=== PATIENT | female | born 1945 | race Caucasian/White ===

== ENCOUNTER 2023-05-27 07:57 | Outpatient (CLI) | payer MEDICARE, SELFPAY ==
--- NOTE | ~2023-05-27 | XR_ITS ---
EXAMINATION: XR barium swallow DATE: 05/27/2023 09:42 INDICATION: Dysphagia TECHNIQUE: The patient drank thick barium, gas-producing crystals, and thin barium. Fluoroscopic spot radiographs of the hypopharynx and esophagus were obtained. Fluoroscopy exposure time was 2.1 minut es. A total of 1736 images were recorded. Total DAP was 9.505 mGycm^2 COMPARISON: None. FINDINGS: Mild asymmetry to the pharynx with couple of appearing intraluminal projections along the r ight lateral wall of the piriform sinus. There also appear to be abnormal filling defects at the vall ecula on the lateral projection. There is a a stricture beginning 10 cm above level of the thoracic h iatus extending to approximately 7.5 cm proximal to the hiatus with maximal narrowing to an intralumi nal diameter of 5 mm. On the BROWN projection the segment of narrowing appears asymmetric with relative ly smooth mucosal contour on the left anterior wall and with a more irregular undulating contour to t he right posterior wall. There is a small avulsion diverticulum along the right posterior wall at the caudal margin of stricture. There is a small sliding-type hiatal hernia with Schatzki's ring at the gastroesophageal junction located approximately 3 cm above level of diaphragm. This does not result i n a significant stricture at the residual lumen dilating to 2.2 cm. Dysmotility in the caudal half of the esophagus at level of the stricture where there is weakening of the primary peristaltic wave, br eakup of the contrast bolus and occasional tertiary contractions. There was no gastroesophageal reflu x with provocative maneuvers. IMPRESSION: 1. 2.5 cm stricture located 10 cm above level of the diaphragm with asymmetric irregular contour to t he esophageal wall which is of indeterminate etiology. The irregular and asymmetric mucosal contour a long the right posterior wall could be due to scarring related to reported prior esophageal dilation although differential includes malignancy. 2. Asymmetry to the piriform sinus with nodular contour to the right lateral wall with additional abn ormal filling defects at the vallecula. Recommend laryngoscopy for further evaluation. 3. Small sliding-type hiatal hernia with partial Schatzki's ring at the gastroesophageal junction loc ated 3 cm above the diaphragm and which is without significant stenosis with lumen diameter to up to 2.2 cm. 4. Small pulsion diverticulum along the inferior margin of the 2.5 cm stricture. Reviewed, dictated and finalized at location A. HOLOGY CLINICIAN IMPRESSION: 1. 2.5 cm stricture located 10 cm above level of the diaphragm with asymmetric irregular contour to the esophageal wall which is of indeterminate etiology. Th e irregular and asymmetric mucosal contour along the right posterior wall could be due to scarring related to reported prior esophageal dilation although diff erential includes malignancy. 2. Asymmetry to the piriform sinus with nodular contour to the right lateral wa ll with additional abnormal filling defects at the vallecula. Recommend laryngo scopy for further evaluation. 3. Small sliding-type hiatal hernia with partial Schatzki's ring at the gastroe sophageal junction located 3 cm above the diaphragm and which is without signif icant stenosis with lumen diameter to up to 2.2 cm. 4. Small pulsion diverticulum along the inferior margin of the 2.5 cm stricture .
== END 2023-05-27 07:58 | disposition home or self-care (01) ==
PROVIDERS: PCP Family Medicine; Visit Provider Internal Medicine Gastroenterology
DX: K22.2 Esophageal obstruction (principal); K44.9 Diaphragmatic hernia without obstruction or gangrene; K22.5 Diverticulum of esophagus, acquired
CPT/HCPCS: 74220

== ENCOUNTER 2023-07-08 01:39 | Day surgery (SDC) | payer MEDICARE, SELFPAY ==
[2023-06-24 14:58] VITALS: BMI 27.4
--- NOTE | 2023-06-24 15:56 | PC.NURSE ---
Spoke with _PATIENT____ regarding medication _ELIQUIS____. Pt. verbalizes understanding that the last dose of _ELIQUIS___ is to be taken on ____07/05/2023____ and the Endoscopist will instruct them when to restart after the procedure.
--- NOTE | 2023-07-04 09:52 | SUR.PREOP ---
Patient called regarding upcoming procedure. Reviewed preop instructions, appointment times, and procedure prep.
--- NOTE | 2023-07-07 15:23 | PM.HPGS ---
History of Present Illness History of Present Illness Consent: Risks, benefits, and alternatives have been discussed and questions answered. Patient agrees to proceed with procedure. Chief complaint: Dysphagia unspecified, hx colon polyps Narrative: Tori Cowan is a 77 year old female who?has had difficulty swallowing for several years.? She recalls having had endoscopy on 3 occasions by about 5 years ago.? This was done 3 times in close proximity because he had to progressively dilate her esophagus.? Only after the last 1 she had slight soreness for few days. Early this year because her symptoms had returned she saw another doctor in [place] He also has perform 3 separate procedures but ever since the very 1st 1 in July she has had constant pain in her lower neck and upper substernal area.? The pain is continuous.? Is not aggravated significantly by swallowing.? The pain is worse at night and at night will radiate down the chest about [address] and is also worse if she turns to the right. She is having difficulty swallowing food.? She feels that it gets stuck at times and in fact a couple of months ago she went to the emergency room because something had been stopped for 4 hours.? She also has a history of colon polyps . Review of Systems Review of Systems: All systems reviewed & are unremarkable except as noted in HPI and below PMFSH Past Medical History Medical History Afib Arthritis Breast mass CVA (cerebral vascular accident) Diabetes History of hypertension Mitral valve prolapse Surgical History Surgical History Aortic valve replaced H/O breast biopsy H/O breast surgery History of partial colectomy Hx of tonsillectomy Family History Family History Mother Alzheimer's disease Diabetes mellitus Carcinoma of colon Hypertension Heart disease Lung cancer Social History Social History Smoking packs per day: 1 Smoking cigarettes per day: 20.0 Years smoked: 25 Smoking pack-years: 25.00 Smoking status: Former smoker Tobacco type: cigarettes Alcohol intake: current Drinks per week: 14 Alcohol use details: VODKA AND ICE Substance use: never Substance use type: does not use Living arrangements: with family Spiritual care concerns: No Meds Home Medications and Allergies Home Medications Medication Instructions Recorded Confirmed Type alprazolam 0.5 mg tablet 0.5 mg PO DAILY PRN Anxiety 04/29/23 07/08/23 History amlodipine 5 mg tablet 5 mg PO DAILY 04/29/23 07/08/23 History apixaban 5 mg tablet 5 mg PO BID 04/29/23 07/08/23 History aspirin 81 mg tablet,delayed 81 mg PO DAILY 04/29/23 07/08/23 History release calcium carbonate 500 mg calcium 500 mg PO DAILY 04/29/23 07/08/23 History (1,250 mg) tablet cyanocobalamin (vitamin B-12) 1,000 mcg PO DAILY 04/29/23 07/08/23 History 1,000 mcg capsule flecainide 100 mg tablet 100 mg PO Q12H 04/29/23 07/08/23 History fluticasone propionate 50 1 spray intranasal DAILY PRN 04/29/23 07/08/23 History mcg/actuation nasal ALLEGIES spray,suspension glipizide 5 mg tablet 5 mg PO BID 04/29/23 07/08/23 History levothyroxine 50 mcg capsule 50 mcg PO DAILY 04/29/23 07/08/23 History losartan 50 mg tablet 50 mg PO BID 04/29/23 07/08/23 History metformin 500 mg tablet 500 mg PO BID 04/29/23 07/08/23 History metoprolol tartrate 100 mg tablet 100 mg PO BID 04/29/23 07/08/23 History omeprazole 20 mg capsule,delayed 20 mg PO BID 04/29/23 07/08/23 History release rosuvastatin 20 mg tablet 20 mg PO DAILY 04/29/23 07/08/23 History Allergies Allergy/AdvReac Type Severity Reaction Status Date / Time cefadroxil Allergy Unknown Hives Verified 07/08/23 09:34 Exam Const: General: alert Orientation/consciousnes
[2023-07-08 09:37] VITALS: BP 149/69; PULSE 68; RESP 16; TEMP 36.1; O2SAT 96
[2023-07-08] MEDS: GENTAMICIN 80MG/SOD CHL 50 ML 80 MG/50 ML BAG 100 MG IVPB (09:53)
[2023-07-08 09:54] LABS: Glucose Point of Care 152 mg/dl (65-105)
[2023-07-08] MEDS: LACTATED RINGERS 1,000 ML 150 ML IV CONT (09:54)
[2023-07-08] MEDS: AMPICILLIN 2 GM/NS 100 ML 2 GM/100 ML BAG IVPB (10:18)
--- NOTE | 2023-07-08 10:18 | WPDANESEPPF ---
Anes - Initial Pre Proc Eval Procedure: Operation Date: 07/08/23 10:30 Proposed Procedures p Esophagogastroduodenoscopy & Colonoscopy - Ari Garcia MD Date/Time: 07/08/23 10:18 Surgeon: Ari Garcia MD Pre Op Diagnosis: Dysphagia unspecified, hx colon polyps Patient Data Age: 77 Gender: F Height: 1.63 m Weight: 71.8 kg Last Vital Signs Temp 97.0 F L 07/08/23 09:37 Pulse 68 07/08/23 09:37 Resp 16 07/08/23 09:37 BP 149/69 H 07/08/23 09:37 Pulse Ox 96 07/08/23 09:37 O2 Del Method Room Air 07/08/23 09:37 Allergies Allergy/AdvReac Type Severity Reaction Status Date / Time cefadroxil Allergy Unknown Hives Verified 07/08/23 09:34 Home Medications Medication Instructions Recorded Confirmed Type alprazolam 0.5 mg tablet 0.5 mg PO DAILY PRN Anxiety 04/29/23 07/08/23 History amlodipine 5 mg tablet 5 mg PO DAILY 04/29/23 07/08/23 History apixaban 5 mg tablet 5 mg PO BID 04/29/23 07/08/23 History aspirin 81 mg tablet,delayed 81 mg PO DAILY 04/29/23 07/08/23 History release calcium carbonate 500 mg calcium 500 mg PO DAILY 04/29/23 07/08/23 History (1,250 mg) tablet cyanocobalamin (vitamin B-12) 1,000 mcg PO DAILY 04/29/23 07/08/23 History 1,000 mcg capsule flecainide 100 mg tablet 100 mg PO Q12H 04/29/23 07/08/23 History fluticasone propionate 50 1 spray intranasal DAILY PRN 04/29/23 07/08/23 History mcg/actuation nasal ALLEGIES spray,suspension glipizide 5 mg tablet 5 mg PO BID 04/29/23 07/08/23 History levothyroxine 50 mcg capsule 50 mcg PO DAILY 04/29/23 07/08/23 History losartan 50 mg tablet 50 mg PO BID 04/29/23 07/08/23 History metformin 500 mg tablet 500 mg PO BID 04/29/23 07/08/23 History metoprolol tartrate 100 mg tablet 100 mg PO BID 04/29/23 07/08/23 History omeprazole 20 mg capsule,delayed 20 mg PO BID 04/29/23 07/08/23 History release rosuvastatin 20 mg tablet 20 mg PO DAILY 04/29/23 07/08/23 History Laboratory Tests 07/08/23 09:52 POC Capillary Glucose 152 H mg/dl (65-105) Patient hx anesthesia problems: none Family hx anesthesia problems: none Results Review: All pre-operative results and documents have been reviewed as part of the pre-operative evaluation. [facility] Past Medical History Medical History Afib Arthritis Breast mass CVA (cerebral vascular accident) Diabetes History of hypertension Mitral valve prolapse Surgical History Surgical History Aortic valve replaced H/O breast biopsy H/O breast surgery History of partial colectomy Hx of tonsillectomy Family History Family History Mother Alzheimer's disease Diabetes mellitus Carcinoma of colon Hypertension Heart disease Lung cancer Social History Social History Smoking packs per day: 1 Smoking cigarettes per day: 20.0 Years smoked: 25 Smoking pack-years: 25.00 Smoking status: Former smoker Tobacco type: cigarettes Alcohol intake: current Drinks per week: 14 Alcohol use details: VODKA AND ICE Substance use: never Substance use type: does not use Living arrangements: with family Spiritual care concerns: No Anes - Eval Final PreProcedure Day of Procedure 07/08/23 10:18 Patient weight: normal Heart: regular rate and rhythm Lungs: clear to auscultation Airway: Mallampati scale class II Neurological: alert and oriented Last oral intake: >/= 8 hours ASA classification: III Emergent: no Anesthetic plan: proceed Anesthesia type and monitoring: general GIVS and standard monitoring Results Review: All pre-operative results and documents have been reviewed as part of the pre-operative evaluation. Informed Consent: The patient's anesthetic plan and its attendant risks and benefits were discussed with the pat
--- NOTE | 2023-07-08 11:01 | SUR.OPER ---
EGD end: 1100 COLONOSCOPY start: 1106
[2023-07-08 11:32] VITALS: BP 118/73; PULSE 73; RESP 18; O2SAT 100
[2023-07-08 11:42] VITALS: BP 140/62; PULSE 82; RESP 24; O2SAT 99
--- NOTE | 2023-07-08 11:46 | SUR.OPER ---
1 descending colon polyp not retrieved Dr. Garcia aware.
[2023-07-08 11:52] VITALS: BP 151/60; PULSE 76; RESP 18; O2SAT 100
== END 2023-07-08 12:11 | disposition home or self-care (01) ==
PROVIDERS: PCP Family Medicine; Visit Provider Internal Medicine Gastroenterology
PROC: 0DJ08ZZ Inspection of Upper Intestinal Tract, Via Natural or Artificial Opening Endoscopic (ICD-10-PCS; CPT 43235; principal; 2023-07-08 10:30)
DX: Z12.11 Encounter for screening for malignant neoplasm of colon (principal); K57.30 Diverticulosis of large intestine without perforation or abscess without bleeding; D12.4 Benign neoplasm of descending colon; D12.2 Benign neoplasm of ascending colon; K64.8 Other hemorrhoids; Z90.49 Acquired absence of other specified parts of digestive tract; Z98.0 Intestinal bypass and anastomosis status; K22.2 Esophageal obstruction; K22.10 Ulcer of esophagus without bleeding; K31.7 Polyp of stomach and duodenum; K21.00 Gastro-esophageal reflux disease with esophagitis, without bleeding; I48.91 Unspecified atrial fibrillation; E11.9 Type 2 diabetes mellitus without complications; I10 Essential (primary) hypertension; I34.1 Nonrheumatic mitral (valve) prolapse; Z86.73 Personal history of transient ischemic attack (TIA), and cerebral infarction without residual deficits; Z87.891 Personal history of nicotine dependence; Z79.01 Long term (current) use of anticoagulants; Z79.82 Long term (current) use of aspirin; Z79.84 Long term (current) use of oral hypoglycemic drugs
CPT/HCPCS: 45385; 43249; 82948; 88305; C1726; J0290; J1580; J2704; J7120

== ENCOUNTER 2023-12-17 01:20 | Day surgery (SDC) | payer MEDICARE, SELFPAY ==
[2023-12-09 10:37] VITALS: BMI 27.2
--- NOTE | 2023-12-09 11:07 | PCDIET ---
Pt interview completed. Clearance and CRMD forms faxed to Dr. Li (eliquis prescriber) and Dr. Heck. Pt concerned about blood sugar dropping before her afternoon appointment. Pt informed she can drink up to 6 oz of clear juice before 0800 on the day of her procedure. She is to call if her blood sugar is low after 0800. Pt aware we will call her again after receiving cardiac clearance to instruct her when to stop taking her Eliquis. Pt stated understanding. Abx ordered for valve replacement. Ampicillin flagged for reaction r/t pt being allergic to cefadroxil. Pt stated she has had no issues taking pcn drugs and per chart was given ampicililn and gentamycin during previous EGD in July 04/2024.
--- NOTE | 2023-12-12 08:18 | SUR.PREOP ---
Spoke with patient regarding medications. Pt. verbalizes understanding that the last dose of Eliquis is to be taken on 12/14/23 and the Endoscopist will instruct them when to restart after the procedure.
--- NOTE | 2023-12-12 09:19 | SUR.PREOP ---
No CRMD form has been received yet for Pt's pacemaker. Fax was resent to Dr. Heck's office. Office was called and informed that new fax was sent over this morning at 0808 for CRMD.
[2023-12-17 09:34] VITALS: BP 162/67; PULSE 72; RESP 18; TEMP 36.3; O2SAT 96
[2023-12-17] MEDS: LACTATED RINGERS 1,000 ML 150 ML IV CONT (09:47)
[2023-12-17] MEDS: GENTAMICIN 80MG/SOD CHL 50 ML 80 MG/50 ML BAG 100 MG IVPB (09:48)
[2023-12-17 09:49] LABS: Glucose Point of Care 170 mg/dl (65-105)
--- NOTE | 2023-12-17 10:09 | WPDANESEPPF ---
Anes - Initial Pre Proc Eval Procedure: Operation Date: 12/17/23 10:00 Proposed Procedures p Esophagogastroduodenoscopy - Mahendra Cooley MD Date/Time: 12/17/23 10:09 Surgeon: Mahendra Cooley MD Pre Op Diagnosis: Esophageal obstruction, Dysphagia Patient Data Age: 78 Gender: F Height: 1.63 m Weight: 71.4 kg Last Vital Signs Temp 97.3 F L 12/17/23 09:34 Pulse 72 12/17/23 09:34 Resp 18 12/17/23 09:34 BP 162/67 H 12/17/23 09:34 Pulse Ox 96 12/17/23 09:34 O2 Del Method Room Air 12/17/23 09:34 Allergies Allergy/AdvReac Type Severity Reaction Status Date / Time cefadroxil Allergy Unknown Hives Verified 12/17/23 09:32 Home Medications Medication Instructions Recorded Confirmed Type alprazolam 0.5 mg tablet 0.5 mg PO DAILY PRN Anxiety 04/29/23 12/09/23 History amlodipine 5 mg tablet 5 mg PO DAILY 04/29/23 12/09/23 History apixaban 5 mg tablet 5 mg PO BID 04/29/23 12/17/23 History aspirin 81 mg tablet,delayed 81 mg PO DAILY 04/29/23 12/09/23 History release calcium carbonate 500 mg PO DAILY 04/29/23 12/09/23 History cyanocobalamin (vitamin B-12) 1,000 mcg PO DAILY 04/29/23 12/09/23 History 1,000 mcg capsule flecainide 100 mg tablet 100 mg PO Q12H 04/29/23 12/09/23 History fluticasone propionate 50 1 spray intranasal DAILY PRN 04/29/23 12/09/23 History mcg/actuation nasal ALLEGIES spray,suspension glipizide 5 mg tablet 5 mg PO BID 04/29/23 12/09/23 History levothyroxine 50 mcg capsule 50 mcg PO DAILY 04/29/23 12/09/23 History losartan 50 mg tablet 50 mg PO BID 04/29/23 12/09/23 History metformin 500 mg tablet 500 mg PO BID 04/29/23 12/09/23 History metoprolol tartrate 100 mg tablet 100 mg PO BID 04/29/23 12/17/23 History omeprazole 20 mg capsule,delayed 20 mg PO BID 04/29/23 12/09/23 History release rosuvastatin 20 mg tablet 20 mg PO DAILY 04/29/23 12/09/23 History Laboratory Tests 12/17/23 09:45 POC Capillary Glucose 170 H mg/dl (65-105) Patient hx anesthesia problems: none Family hx anesthesia problems: none Results Review: All pre-operative results and documents have been reviewed as part of the pre-operative evaluation. [facility] Past Medical History Medical History Afib Arthritis Breast mass CVA (cerebral vascular accident) Diabetes History of hypertension Mitral valve prolapse Surgical History Surgical History Aortic valve replaced H/O breast biopsy H/O breast surgery History of partial colectomy Hx of tonsillectomy Family History Family History Mother Alzheimer's disease Diabetes mellitus Carcinoma of colon Hypertension Heart disease Lung cancer Social History Social History Smoking packs per day: 1 Smoking cigarettes per day: 20.0 Years smoked: 25 Smoking pack-years: 25.00 Smoking status: Former smoker Tobacco type: cigarettes Alcohol intake: current Drinks per week: 7 Alcohol use details: VODKA AND ICE Substance use: never Substance use type: does not use Living arrangements: with family Spiritual care concerns: No Anes - Eval Final PreProcedure Day of Procedure 12/17/23 10:09 Patient weight: normal Heart: regular rate and rhythm Lungs: clear to auscultation Airway: Mallampati scale class II Neurological: alert and oriented Last oral intake: >/= 8 hours ASA classification: III Emergent: no Anesthetic plan: proceed Anesthesia type and monitoring: general GIVS and standard monitoring Results Review: All pre-operative results and documents have been reviewed as part of the pre-operative evaluation. Informed Consent: The patient's anesthetic plan and its attendant risks and benefits were discussed with the patient/family/POA. Questions were solic
[2023-12-17] MEDS: AMPICILLIN 2 GM/NS 100 ML 2 GM/100 ML BAG IVPB (10:19)
--- NOTE | 2023-12-17 10:41 | PM.HPGS ---
History of Present Illness History of Present Illness Consent: Risks, benefits, and alternatives have been discussed and questions answered. Patient agrees to proceed with procedure. Chief complaint: Esophageal obstruction, Dysphagia Narrative: Tori Cowan is a 78 year old female with h/o esophageal peptic stricture dilated few months ago, here with recurrent dysphagia and cough, on ppi twice daily. Review of Systems Review of Systems: All systems reviewed & are unremarkable except as noted in HPI and below PMFSH Past Medical History Medical History Afib Arthritis Breast mass CVA (cerebral vascular accident) Diabetes History of hypertension Mitral valve prolapse Surgical History Surgical History Aortic valve replaced H/O breast biopsy H/O breast surgery History of partial colectomy Hx of tonsillectomy Family History Family History Mother Alzheimer's disease Diabetes mellitus Carcinoma of colon Hypertension Heart disease Lung cancer Social History Social History Smoking packs per day: 1 Smoking cigarettes per day: 20.0 Years smoked: 25 Smoking pack-years: 25.00 Smoking status: Former smoker Tobacco type: cigarettes Alcohol intake: current Drinks per week: 7 Alcohol use details: VODKA AND ICE Substance use: never Substance use type: does not use Living arrangements: with family Spiritual care concerns: No Meds Home Medications and Allergies Home Medications Medication Instructions Recorded Confirmed Type alprazolam 0.5 mg tablet 0.5 mg PO DAILY PRN Anxiety 04/29/23 12/09/23 History amlodipine 5 mg tablet 5 mg PO DAILY 04/29/23 12/09/23 History apixaban 5 mg tablet 5 mg PO BID 04/29/23 12/17/23 History aspirin 81 mg tablet,delayed 81 mg PO DAILY 04/29/23 12/09/23 History release calcium carbonate 500 mg PO DAILY 04/29/23 12/09/23 History cyanocobalamin (vitamin B-12) 1,000 mcg PO DAILY 04/29/23 12/09/23 History 1,000 mcg capsule flecainide 100 mg tablet 100 mg PO Q12H 04/29/23 12/09/23 History fluticasone propionate 50 1 spray intranasal DAILY PRN 04/29/23 12/09/23 History mcg/actuation nasal ALLEGIES spray,suspension glipizide 5 mg tablet 5 mg PO BID 04/29/23 12/09/23 History levothyroxine 50 mcg capsule 50 mcg PO DAILY 04/29/23 12/09/23 History losartan 50 mg tablet 50 mg PO BID 04/29/23 12/09/23 History metformin 500 mg tablet 500 mg PO BID 04/29/23 12/09/23 History metoprolol tartrate 100 mg tablet 100 mg PO BID 04/29/23 12/17/23 History omeprazole 20 mg capsule,delayed 20 mg PO BID 04/29/23 12/09/23 History release rosuvastatin 20 mg tablet 20 mg PO DAILY 04/29/23 12/09/23 History Allergies Allergy/AdvReac Type Severity Reaction Status Date / Time cefadroxil Allergy Unknown Hives Verified 12/17/23 09:32 Vital Signs Vital Signs - 24 hr 12/17/23 09:34 Temperature 97.3 F L Pulse Rate 72 Respiratory Rate 18 Blood Pressure 162/67 H Pulse Oximetry 96 Oxygen Delivery Room Air Exam Const: General: comfortable and no acute distress HENMT: Face/Nose/Sinus: Normal nares present Eyes: General: appearance normal, both eyes and all related structures Neck: Neck: no JVD Resp: Auscultation: clear to auscultation bilaterally Cardio: Rate: regular rate Rhythm: regular rhythm GI: Inspection: non-distended GI Palp: Yes Soft to palpation Skin: General skin exam: normal color Neuro: General: gait normal Speech: normal speech Extrem: General: normal to inspection Psych: Mental Status: mental status grossly normal Assessment and Plan Assessment and plan (1) Esophageal stricture: Code(s): K22.2 - Esophageal obstruction Status: Acute Assessment and Plan: egd with possible dilation on pp
[2023-12-17 11:16] VITALS: BP 184/94; PULSE 80; RESP 20; O2SAT 98
[2023-12-17 11:26] VITALS: BP 175/90; PULSE 75; RESP 19; O2SAT 100
[2023-12-17 11:36] VITALS: BP 172/82; PULSE 70; RESP 20; O2SAT 99
--- NOTE | 2023-12-17 11:52 | SUR.PHASEII ---
Patient coughing and has a large amount of mucous. Patient did get suctioned by STITCHING MACHINE SETTER during procedure. Dr. Hector auscultated patient's lungs and they are clear. Patient may be discharged.
== END 2023-12-17 11:59 | disposition home or self-care (01) ==
PROVIDERS: PCP Family Medicine; Referring Provider Nurse Practitioner; Visit Provider Internal Medicine Gastroenterology
PROC: 0DJ08ZZ Inspection of Upper Intestinal Tract, Via Natural or Artificial Opening Endoscopic (ICD-10-PCS; CPT 43235; principal; 2023-12-17 10:00)
DX: K21.00 Gastro-esophageal reflux disease with esophagitis, without bleeding (principal); K29.50 Unspecified chronic gastritis without bleeding; K22.5 Diverticulum of esophagus, acquired; K44.9 Diaphragmatic hernia without obstruction or gangrene; K22.2 Esophageal obstruction; I10 Essential (primary) hypertension; E11.9 Type 2 diabetes mellitus without complications; I48.91 Unspecified atrial fibrillation; Z79.01 Long term (current) use of anticoagulants; Z79.82 Long term (current) use of aspirin; Z79.84 Long term (current) use of oral hypoglycemic drugs; Z98.890 Other specified postprocedural states; Z90.49 Acquired absence of other specified parts of digestive tract; Z95.2 Presence of prosthetic heart valve; Z87.891 Personal history of nicotine dependence; Z86.79 Personal history of other diseases of the circulatory system; Z80.0 Family history of malignant neoplasm of digestive organs; Z80.1 Family history of malignant neoplasm of trachea, bronchus and lung; Z82.49 Family history of ischemic heart disease and other diseases of the circulatory system
CPT/HCPCS: 43249; 82948; 88305; 88312; C1726; J0290; J1580; J2704; J7120